=== PATIENT | male | born 1995 | race Caucasian/White ===

== ENCOUNTER 2018-03-26 15:58 | Emergency (ER) | payer MEDICAID ==
[2018-03-26] MEDS ORDERED: KETOROLAC 30 MG/1 ML SDV IVP ONE (17:04)
[2018-03-26] MEDS ORDERED: NS 1,000 ML IV ONE (17:04)
[2018-03-26] MEDS ORDERED: ONDANSETRON 4 MG/2 ML VIAL IVP ONE (17:05)
--- NOTE | 2018-03-26 17:20 | EDPHY ---
H & P Stated Complaint: LAKE Time Seen by Provider: 03/26/18 16:11 HPI/ROS: CHIEF COMPLAINT: Headache HISTORY OF PRESENT ILLNESS: This is a 22-year-old male to female transgender with a history of migraine headache and stress headache. She presents concerned about a change in the nature of her headaches. She has had a dull headache for the past 2 weeks, which she states is not particularly uncommon. This headache began between her eyes and then spread either side. She occasionally takes ibuprofen if the headache worsens. Her migraine headaches are usually left-sided and retro-orbital, sometimes with extension to the entire left head. She usually experiences an aura and some photophobia and is able to go into a darkened room to try to relax and treat the migraine. For the past 2 nights she has awakened abruptly with pain in and behind her right eye. The pain is sharp and stabbing. It is severe. She has treated it with ibuprofen and been able to fall back asleep. No change in vision. No head trauma. No fever. She had a recent upper respiratory illness with sinus involvement--more than 2 weeks ago--and feels that these symptoms have resolved except for an occasional mild cough. She has not had vomiting or significant diarrhea. No shortness of breath. She saw a neurologist for her headaches about 2 years ago. She had a negative/ normal CT scan of the head 2 years ago. REVIEW OF SYSTEMS: A ten system review of systems was performed and is negative with the exception of the items mentioned in the HPI. Past medical history: 1. Migraines 2. 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 No illicit drugs. No tobacco. General Appearance: Alert. Vital signs reviewed. Blood pressure 155/85 at triage. Heart rate 101 at triage. Head: Normocephalic atraumatic. No temporal artery tenderness. Tenderness palpation over the frontal sinus. No maxillary sinus tenderness. Eyes: Pupils equal and round, no conjunctival injection, no discharge. Anicteric. No proptosis. No periorbital edema or erythema. No facial skin warmth. ENT, Mouth: Mucous membranes are moist, no oropharyngeal erythema or edema. No sinus drainage. Neck: No lymphadenopathy, supple. No meningeal signs. Respiratory: Lungs are clear to auscultation; no wheezes, rales, or rhonchi. Cardiovascular: Regular rate and rhythm; no murmur, rub, or gallop. Gastrointestinal: Abdomen is soft and nontender, no masses or organomegaly, bowel sounds normal. Skin: Warm and dry, no rashes on exposed skin, normal color. Back: Nontender to palpation over the thoracolumbar spine. Extremities: No lower extremity edema, no calf tenderness or swelling. Neurological: Alert and oriented. Moving all four extremities easily and equally. Cranial nerves II through XII are examined and are intact (visual acuity not tested). Strength is 5 over 5 bilaterally with testing of all major motor groups. Sensation is intact to light touch over all 4 extremities. Deep tendon reflexes are 1+ in the biceps and knees bilaterally. Gait is normal. Psychiatric: Normal affect. - Medical/Surgical History Hx Asthma: No Hx Chronic Respiratory Disease: No Hx Diabetes: No Hx Cardiac Disease: No Hx Renal Disease: No Hx Cirrhosis: No Hx Alcoholism: No Hx HIV/AIDS: No Hx Splenectomy or Spleen Trauma: No Other PMH: MIGRAINES, concussion, syncope. transgender, depression - Social History Smoking Status: Never smoked Constitutional: Initial Vital Signs Temperature (C) 36.5 C 03/26/18 16:06 Heart Rate 101 H 03/26/18 16:06 Respiratory Rate 20 03/26/18 16:06 Blood Pressure 155/85 H 03/26/18 16:06 O2 Sat (%) 97 03/26/18 16:06 O2 Delivery Mode Room Air Allergies/Adverse Reactions: cats Allergy (Uncoded 02/05/15 02:57) Home Medications: Medication Instructions Recorded Estradiol [Estradiol 1 MG (RX)] 2 mg PO DAILY 01/29/15 Spironolactone [Aldactone 50 MG 100 mg PO BID 01/29/15 (RX)] Venlafaxine Xr [Effexor Xr 37.5MG 112.5 mg PO DAILY #60 cap 02/01/15 (*)] Amoxicillin Trihydrate [Amoxil] 500 mg PO Q8H #21 cap 03/26/18 Medical Decision Making - Diagnostics Imaging Results: Imaging Impressions Head CT 03/26/18 17:05 Impression: 1. Right frontal sinusitis with fluid. 2. Otherwise normal noncontrast CT brain. Findings and recommendations discussed with Emergency Department physician, Bridget Samayoa at 1732 hour, 03/26/2018. Final report concurs with initial preliminary interpretation. Imaging: Discussed imaging studies w/ senior accounting clerk Radiologist ED Course/Re-evaluation: 22-year-old with long history of both migraine and stress headaches who presents with a headache that is different from any headache she has previously experienced her migraines are normally left-sided and she has been experiencing right eye and retro-orbital pain, awakening her at night. No tearing or other symptoms that might suggest cluster headache. She is young for temporal arteritis. This is in the setting of a recent upper respiratory infection with sinus drainage and congestion. No fever. Because of the changed nature of her headaches, CT scan of the brain was ordered. This shows right frontal sinusitis with fluid in the sinus. I think that this likely explains her right-sided headache. She has no signs of toxicity or sepsis and no signs of intracranial abscess. I am prescribing amoxicillin 500 mg three times daily for 7 days. Referral to ENT and primary care is being provided. Danger signs have been reviewed.CHIEF COMPLAINT: While in the emergency department she was also treated for migraine, which is what I suspect her background headache is. She received 1 L IV fluid normal saline, 4 mg IV Zofran (she takes an SSRI and I chose not to use Reglan because of the interaction), 25 mg IV Benadryl and 15 mg IV Toradol. She was discharged from the department in stable and improved condition. Differential Diagnosis: I considered a differential diagnosis that includes migraine headache, tension headache, cluster headaches, temporal arteritis, sinusitis (viral, bacterial, and fungal), dental infection, preseptal and orbital cellulitis, osteomyelitis of the sinus bones, intracranial abscess, septic cavernous sinus thrombosis, meningitis. - Data Points Medications Given: Discontinued Medications Diphenhydramine HCl (Benadryl Injection) 25 mg IVP EDNOW ONE Stop: 03/26/18 17:05 Last Admin: 03/26/18 17:35 Dose: 25 mg Sodium Chloride (Ns) 1,000 mls @ 0 mls/hr IV ONCE ONE; Wide Open PRN Reason: Protocol Stop: 03/26/18 17:05 Last Admin: 03/26/18 17:30 Dose: 1,000 mls Ketorolac Tromethamine (Toradol) 15 mg IVP EDNOW ONE Stop: 03/26/18 17:05 Last Admin: 03/26/18 17:33 Dose: 15 mg Ondansetron HCl (Zofran) 4 mg IVP EDNOW ONE Stop: 03/26/18 17:06 Last Admin: 03/26/18 17:31 Dose: 4 mg Departure - Departure Disposition: Home, Routine, Self-Care Clinical Impression: Sinusitis, acute Qualifiers: Sinusitis location: frontal Recurrence: non-recurrent Qualified Code(s): J01.10 - Acute frontal sinusitis, unspecified Migraine Qualifiers: Migraine type: chronic without aura Status migrainosus presence: without status migrainosus Intractability: not intractable Qualified Code(s): G43.709 - Chronic migraine without aura, not intractable, without status migrainosus Condition: Good Instructions: Sinusitis (ED) Additional Instructions: I am prescribing amoxicillin for your sinusitis. You should take 500 mg, 1 pill , 3 times daily. The prescription will last 7 days. I am referring you to a primary care doctor. I am giving you the number for Dr. Lopez (fermentation operator for the emergency department today). I am also referring you to an ear, nose, and throat specialist. Dr. Wang is fermentation operator for the emergency department today and should be able to see you if you are not getting better in a week (after taking the antibiotics). If you develop severe persistent headache, change in vision, pain with eye movements, fever, confusion, any new or concerning symptoms--please be re- evaluated immediately. Referrals: Ivan Lopez MD [Medical Doctor] - As per Instructions Kash Wang MD [Medical Doctor] - As per Instructions Prescriptions: Amoxicillin Trihydrate [Amoxil] 500 mg PO Q8H #21 cap
[2018-03-26 18:31] VITALS: BP 137/79
== END 2018-03-26 18:37 | disposition home or self-care (01) ==
LOC: CED 15:58
DX: J01.10 Acute frontal sinusitis, unspecified (principal); G43.709 Chronic migraine without aura, not intractable, without status migrainosus; E86.9 Volume depletion, unspecified
CPT/HCPCS: 70450-PO; 96374; J1200; J1885; J2405